=== PATIENT | female | born 1965 | race Caucasian/White ===

== ENCOUNTER 2016-07-30 13:22 | Outpatient (CLI) | payer OTHER ==
[~2016-07-30] VITALS: Ht 147.3 cm; Wt 73.6 kg
[2016-07-30] MEDS ORDERED: FISH OIL 1,0001 CA1 PO (14:52)
[2016-07-30] MEDS ORDERED: CRANBERRY 400 M1 TA1 PO (14:52)
[2016-07-30] MEDS ORDERED: MELATONIN 10 M1 EACH PO (14:53)
[2016-07-30 15:00] VITALS: BP 124/91; Ht 147.3 cm; Wt 73.6 kg
--- NOTE | 2016-07-30 15:45 | NUR ---
ANTIBIOTIC COMPLETED. SALINE LOCK FLUSHED WITH NS. COBAN OVER SITE PER REQUEST.
--- NOTE | 2016-07-30 16:05 | NUR ---
DISCHARGE INSTRUCTIONS GIVEN, DISCHARGED HOME.
[2016-07-31] MEDS ORDERED: LANTUS INSULIN10 ML (13:21)
[2016-08-04] MEDS ORDERED: PROBIOTIC1 EAC1 PO (13:03)
== END 2016-07-30 16:05 | disposition home or self-care (01) ==
LOC: D.OPS 13:22
DX: N39.0 Urinary tract infection, site not specified (principal)

== ENCOUNTER 2016-07-31 13:09 | Outpatient (CLI) | payer OTHER ==
[~2016-07-31 13:09] MED LIST: CRANBERRY 400 M1 TA1 PO; FISH OIL 1,0001 CA1 PO; MELATONIN 10 M1 EACH PO
[2016-07-31] MEDS ORDERED: LANTUS INSULIN10 ML (13:21)
[2016-07-31 13:24] VITALS: BP 121/75; Ht 147.3 cm
[2016-08-04] MEDS ORDERED: PROBIOTIC1 EAC1 PO (13:03)
== END 2016-07-31 15:15 | disposition home or self-care (01) ==
LOC: D.OPS 13:09
DX: N39.0 Urinary tract infection, site not specified (principal)

== ENCOUNTER 2016-08-01 12:29 | Outpatient (CLI) | payer OTHER ==
[~2016-08-01 12:29] MED LIST changes: +LANTUS INSULIN10 ML
--- NOTE | 2016-08-01 13:05 | NUR ---
PATIENT SITTING UP ON SIDE OF BED ALERT. RESPIRATIONS EVEN AND UNLABORED. GUEST AT BEDSIDE. 22 GAUGE IV SITED TO RIGHT FOREARM X1 ATTEMPT. FLUSHES EASY WITH BRISK BLOOD RETURN PRESENT. SECURED WITH TAPE AND TEGADERM. TOLERATED WELL. DENIES NEEDS.
[2016-08-01 13:31] VITALS: Ht 147.3 cm
--- NOTE | 2016-08-01 13:55 | NUR ---
IV ABX INITIATED PER ORDER TO RIGHT FOREARM. DENIES NEEDS. GUEST AT BEDSIDE. WILL CONTINUE TO MONITOR.
--- NOTE | 2016-08-01 15:08 | NUR ---
IV ABX COMPLETE. IV TO RIGHT FOREARM SALINE LOCKED. SWAB CAP APPLIED. D/C TEACHING PROVIDED. PATIENT AMBULATED OFF UNIT.
[2016-08-04] MEDS ORDERED: PROBIOTIC1 EAC1 PO (13:03)
== END 2016-08-01 15:10 | disposition home or self-care (01) ==
LOC: D.OPS → D.MS 12:29 → D.OPS 14:29
DX: N39.0 Urinary tract infection, site not specified (principal)

== ENCOUNTER 2016-08-02 11:20 | Outpatient (CLI) | payer OTHER ==
--- NOTE | 2016-08-02 12:00 | NUR ---
PT ON FLOOR RECIEVING ANTIBIOTICS, TOBRAMYCIN IV, IV PATENT TO RIGHT FOREARM, NO COMPLAINTS AT THIS TIME, WILL CONTINUE TO MONITOR
--- NOTE | 2016-08-02 13:30 | NUR ---
PT IV INFUSION FINISHED AT 1330, NO ADVERSE REACTIONS, NO CURRENT COMPLAINTS, SENT HOME
[2016-08-04] MEDS ORDERED: PROBIOTIC1 EAC1 PO (13:03)
== END 2016-08-02 15:35 | disposition home or self-care (01) ==
LOC: D.OPS → D.MS 11:26 → D.OPS 11:50
DX: N39.0 Urinary tract infection, site not specified (principal)

== ENCOUNTER → 2016-08-03 11:35 | Outpatient (CLI) | payer OTHER ==
[~2016-08-03 11:35] MED LIST changes: +PROBIOTIC1 EAC1 PO
[2016-08-03 13:07] VITALS: BP 124/66; Ht 147.3 cm
== END | disposition home or self-care (01) ==
LOC: D.OPS 11:35
DX: N39.0 Urinary tract infection, site not specified (principal)

== ENCOUNTER → 2016-08-04 14:31 | Outpatient (CLI) | payer OTHER ==
[~2016-08-04] VITALS: Ht 147.3 cm; Wt 73.6 kg
[2016-08-04 13:07] VITALS: BP 112/73; Ht 147.3 cm; Wt 73.6 kg
== END | disposition home or self-care (01) ==
LOC: D.OPS 13:30
DX: N39.0 Urinary tract infection, site not specified (principal)

== ENCOUNTER 2016-08-05 11:16 | Outpatient (CLI) | payer OTHER ==
[2016-08-05 12:37] VITALS: BP 108/75; Ht 147.3 cm
--- NOTE | 2016-08-05 12:41 | NUR ---
1105-PT ARRIVED IN OPS WITH IV SALINE LOCKED IV LOOKS GOOD FLUSHED WITH 10 ML OF NORMAL SALINE TOBRAMYCIN INFUSION STARTED VIA MED PUMP WITH OUT ANY DIFFICULTIES VIA INFUSION PUMP. 1210-INFUSION COMPLETED WITHOUT ANY DIFFICULTIES. IV DISCONTINUED WITH CATHETER INTACT 1215-PT DISCHARGED HOME IN STABLE CONDITION AND DENIES ANY NEEDS OR CONCERNS AT THIS TIME
== END 2016-08-05 12:15 | disposition home or self-care (01) ==
LOC: D.OPS 11:16
DX: N39.0 Urinary tract infection, site not specified (principal)